=== PATIENT | female | born 1940 | race Native Hawaiian/Other Pacific Islander ===

== ENCOUNTER 2016-06-28 08:10 | Outpatient (CLI) | payer OTHER ==
[~2016-06-28 08:10] MED LIST: ALLEGRA ALRG180 M1 PO; AMOX500C85 PO; BUDEPRION150 MG PO; FLUT0.05 NAS; FURO20TA67 PO; LISI20TA11 PO; MELOXICAM7.5 MG PO; POTA20TA4 PO; SPIRONOLACT25 MG PO; TRAM50TA PO
[2016-06-28 08:42] LABS: PLATELET COUNT 210 K/uL (152-353)
[2016-06-28 09:54] LABS: POTASSIUM 4.3 mmol/L (3.6-5.2)
== END 2016-06-28 19:03 | disposition home or self-care (01) ==
LOC: LABW 08:10
PROVIDERS: Internal Medicine Nephrology
DX: I12.9 Hypertensive chronic kidney disease with stage 1 through stage 4 chronic kidney disease, or unspecified chronic kidney disease (principal); N18.4 Chronic kidney disease, stage 4 (severe); E78.4 Other hyperlipidemia
CPT/HCPCS: 36415; 80053; 80061; 81000; 82306; 82570; 83970; 84100; 84155; 84439; 84443; 85027

== ENCOUNTER 2016-07-26 12:13 | Outpatient (CLI) | payer OTHER | END 2016-07-26 13:30 | disposition home or self-care (01) | LOC: RAD 12:13 | DX: M79.672 Pain in left foot (principal) ==

== ENCOUNTER 2017-01-03 09:06 | Outpatient (CLI) | payer OTHER ==
[2017-01-03 09:30] LABS: PLATELET COUNT 188 K/uL (152-353)
[2017-01-03 10:41] LABS: POTASSIUM 4.9 mmol/L (3.6-5.2)
== END 2017-01-03 19:28 | disposition home or self-care (01) ==
LOC: LABW 09:06
PROVIDERS: Internal Medicine Nephrology
DX: I12.9 Hypertensive chronic kidney disease with stage 1 through stage 4 chronic kidney disease, or unspecified chronic kidney disease (principal); N18.4 Chronic kidney disease, stage 4 (severe); E78.4 Other hyperlipidemia
CPT/HCPCS: 36415; 80053; 81000; 82306; 82570; 83970; 84100; 84155; 85027

== ENCOUNTER 2017-05-11 08:34 | Outpatient (CLI) | payer OTHER | END 2017-05-11 21:57 | disposition home or self-care (01) | LOC: MAMMO 08:34 | DX: Z12.31 Encounter for screening mammogram for malignant neoplasm of breast (principal) ==

== ENCOUNTER 2017-06-01 09:13 | Outpatient (CLI) | payer OTHER ==
[2017-06-01 09:59] LABS: PLATELET COUNT 218 K/uL (152-353)
[2017-06-01 10:37] LABS: POTASSIUM 4.3 mmol/L (3.6-5.2)
== END 2017-06-01 18:00 | disposition home or self-care (01) ==
LOC: LABW 09:13
PROVIDERS: Internal Medicine Nephrology
DX: I12.9 Hypertensive chronic kidney disease with stage 1 through stage 4 chronic kidney disease, or unspecified chronic kidney disease (principal); N18.4 Chronic kidney disease, stage 4 (severe); E87.5 Hyperkalemia
CPT/HCPCS: 36415; 80053; 81000; 82306; 82570; 83970; 84100; 84155; 85027

== ENCOUNTER 2017-08-03 11:24 | Outpatient (CLI) | payer OTHER | END 2017-08-03 22:38 | disposition home or self-care (01) | LOC: RAD 11:24 | DX: M25.561 Pain in right knee (principal) ==

== ENCOUNTER 2017-10-08 12:30 | Outpatient (CLI) | payer OTHER | END 2017-10-08 20:33 | disposition home or self-care (01) | LOC: RAD 12:30 | DX: M25.561 Pain in right knee (principal) ==

== ENCOUNTER 2017-10-12 09:56 | Outpatient (CLI) | payer OTHER | END 2017-10-12 19:45 | disposition home or self-care (01) | LOC: US 09:56 | DX: R60.0 Localized edema (principal) ==

== ENCOUNTER 2017-12-04 07:53 | Outpatient (CLI) | payer OTHER ==
[2017-12-04 08:23] LABS: PLATELET COUNT 197 K/uL (152-353)
[2017-12-04 08:51] LABS: POTASSIUM 4.3 mmol/L (3.6-5.2)
== END 2017-12-04 22:23 | disposition home or self-care (01) ==
LOC: LABW 07:53
PROVIDERS: Internal Medicine Nephrology
DX: N18.4 Chronic kidney disease, stage 4 (severe) (principal); E87.5 Hyperkalemia; I10 Essential (primary) hypertension
CPT/HCPCS: 36415; 80053; 81000; 82306; 82570; 83970; 84100; 84155; 85027

== ENCOUNTER 2018-05-20 10:31 | Outpatient (CLI) | payer OTHER ==
[2018-05-20 11:09] LABS: POTASSIUM 4.6 mmol/L (3.6-5.2)
== END 2018-05-20 21:52 | disposition home or self-care (01) ==
LOC: LABW 10:31
PROVIDERS: Internal Medicine
DX: I48.91 Unspecified atrial fibrillation (principal); I10 Essential (primary) hypertension; Z79.899 Other long term (current) drug therapy; M54.41 Lumbago with sciatica, right side
CPT/HCPCS: 36415; 80053; 80061; 84439; 84443

== ENCOUNTER 2018-06-24 09:01 | Outpatient (CLI) | payer OTHER | END 2018-06-24 22:56 | disposition home or self-care (01) | LOC: MRI 09:01 | DX: M54.2 Cervicalgia (principal); M54.16 Radiculopathy, lumbar region ==

== ENCOUNTER 2018-07-02 16:33 | Outpatient (CLI) | payer OTHER | END 2018-07-02 22:51 | disposition home or self-care (01) | LOC: LAB 16:33 | DX: L03.116 Cellulitis of left lower limb (principal) | CPT/HCPCS: 87070; 87077; 87185; 87186; 87205 ==

== ENCOUNTER 2018-07-18 21:17 | Emergency (ER) | payer OTHER ==
[~2018-07-18] VITALS: Ht 154.9 cm; Wt 96.6 kg
[2018-07-19 00:12] VITALS: BP 155/68; TEMP 97.7
== END 2018-07-19 00:20 | disposition home or self-care (01) ==
LOC: ED 21:17
DX: K52.89 Other specified noninfective gastroenteritis and colitis (principal); R11.2 Nausea with vomiting, unspecified; R19.7 Diarrhea, unspecified
CPT/HCPCS: 96360; 96374; 96375; 99284; J2405

== ENCOUNTER 2018-08-06 08:41 | Outpatient (CLI) | payer OTHER ==
[2018-08-06 09:07] LABS: PLATELET COUNT 221 K/uL (152-353)
[2018-08-06 09:14] LABS: POTASSIUM 5.3 mmol/L (3.6-5.2)
== END 2018-08-06 19:18 | disposition home or self-care (01) ==
LOC: LABW 08:41
PROVIDERS: Internal Medicine Nephrology
DX: I12.9 Hypertensive chronic kidney disease with stage 1 through stage 4 chronic kidney disease, or unspecified chronic kidney disease (principal); N18.3 Chronic kidney disease, stage 3 (moderate); E87.5 Hyperkalemia; E55.9 Vitamin D deficiency, unspecified; M15.8 Other polyosteoarthritis
CPT/HCPCS: 36415; 80053; 81000; 82570; 82652; 83970; 84100; 84155; 85027

== ENCOUNTER 2018-11-07 08:52 | Outpatient (CLI) | payer OTHER ==
[2018-11-07 10:28] LABS: PLATELET COUNT 211 K/uL (152-353)
[2018-11-07 10:43] LABS: POTASSIUM 4.4 mmol/L (3.6-5.2)
== END 2018-11-07 20:26 | disposition home or self-care (01) ==
LOC: MAMMO 08:52
PROVIDERS: Internal Medicine
DX: Z00.00 Encounter for general adult medical examination without abnormal findings (principal); Z12.31 Encounter for screening mammogram for malignant neoplasm of breast; Z13.820 Encounter for screening for osteoporosis; N95.8 Other specified menopausal and perimenopausal disorders; I12.9 Hypertensive chronic kidney disease with stage 1 through stage 4 chronic kidney disease, or unspecified chronic kidney disease; N18.3 Chronic kidney disease, stage 3 (moderate)
CPT/HCPCS: 36415; 80053; 80061; 81000; 84439; 84443; 85027

== ENCOUNTER 2019-03-03 09:02 | Outpatient (CLI) | payer OTHER ==
[2019-03-03 09:41] LABS: POTASSIUM 4.3 mmol/L (3.6-5.2)
[2019-03-03 09:48] LABS: PLATELET COUNT 220 K/uL (152-353)
== END 2019-03-03 22:54 | disposition home or self-care (01) ==
LOC: LABW 09:02
PROVIDERS: Internal Medicine Nephrology
DX: I12.9 Hypertensive chronic kidney disease with stage 1 through stage 4 chronic kidney disease, or unspecified chronic kidney disease (principal); N18.3 Chronic kidney disease, stage 3 (moderate); E78.49 Other hyperlipidemia; M19.90 Unspecified osteoarthritis, unspecified site; E55.9 Vitamin D deficiency, unspecified
CPT/HCPCS: 36415; 80053; 80061; 82570; 84100; 84155; 85027

== ENCOUNTER 2019-05-14 08:14 | Outpatient (CLI) | payer OTHER ==
[2019-05-14 08:50] LABS: PLATELET COUNT 185 K/uL (152-353)
[2019-05-14 09:20] LABS: POTASSIUM 4.2 mmol/L (3.6-5.2)
== END 2019-05-14 19:19 | disposition home or self-care (01) ==
LOC: LABW 08:14
PROVIDERS: Internal Medicine
DX: I10 Essential (primary) hypertension (principal); I48.91 Unspecified atrial fibrillation
CPT/HCPCS: 36415; 80053; 80061; 81000; 84439; 84443; 85027

== ENCOUNTER 2019-07-30 08:10 | Outpatient (CLI) | payer OTHER ==
[2019-07-30 09:03] LABS: POTASSIUM 4.6 mmol/L (3.6-5.2)
[2019-07-30 10:02] LABS: PLATELET COUNT 161 K/uL (152-353)
== END 2019-07-30 22:21 | disposition home or self-care (01) ==
LOC: LABW 08:10
PROVIDERS: Internal Medicine Nephrology
DX: E55.9 Vitamin D deficiency, unspecified (principal); E87.5 Hyperkalemia; M19.90 Unspecified osteoarthritis, unspecified site; N18.3 Chronic kidney disease, stage 3 (moderate); E46 Unspecified protein-calorie malnutrition; I12.9 Hypertensive chronic kidney disease with stage 1 through stage 4 chronic kidney disease, or unspecified chronic kidney disease
CPT/HCPCS: 36415; 80053; 82306; 82570; 83970; 84100; 84155; 85027

== ENCOUNTER 2019-11-28 08:55 | Outpatient (CLI) | payer OTHER ==
[2019-11-28 09:42] LABS: POTASSIUM 4.7 mmol/L (3.6-5.2)
[2019-11-28 10:12] LABS: PLATELET COUNT 208 K/uL (152-353)
== END 2019-11-28 23:52 | disposition home or self-care (01) ==
LOC: LABW 08:55
PROVIDERS: Internal Medicine
DX: I10 Essential (primary) hypertension (principal)
CPT/HCPCS: 36415; 80053; 80061; 81000; 84439; 84443; 85027

== ENCOUNTER 2020-02-27 08:44 | Outpatient (CLI) | payer OTHER ==
[2020-02-27 09:38] LABS: PLATELET COUNT 187 K/uL (152-353)
[2020-02-27 11:17] LABS: POTASSIUM 4.4 mmol/L (3.6-5.2)
== END 2020-02-27 20:01 | disposition home or self-care (01) ==
LOC: LABW 08:44
PROVIDERS: ATTEND Internal Medicine
DX: E03.8 Other specified hypothyroidism (principal); N18.30 Chronic kidney disease, stage 3 unspecified; I12.9 Hypertensive chronic kidney disease with stage 1 through stage 4 chronic kidney disease, or unspecified chronic kidney disease
CPT/HCPCS: 36415; 80053; 81000; 84439; 84443; 85027

== ENCOUNTER 2020-03-09 10:28 | Outpatient (CLI) | payer OTHER | END 2020-03-09 19:12 | disposition home or self-care (01) | LOC: MAMMO 10:28 | PROVIDERS: ATTEND Internal Medicine | DX: Z12.31 Encounter for screening mammogram for malignant neoplasm of breast (principal) ==

== ENCOUNTER 2020-06-07 08:46 | Outpatient (CLI) | payer OTHER ==
[2020-06-07 09:22] LABS: PLATELET COUNT 217 K/uL (152-353)
[2020-06-07 10:19] LABS: POTASSIUM 4.6 mmol/L (3.6-5.2)
== END 2020-06-07 20:43 | disposition home or self-care (01) ==
LOC: LABW 08:46
PROVIDERS: ATTEND Internal Medicine Nephrology
DX: E55.9 Vitamin D deficiency, unspecified (principal); E87.5 Hyperkalemia; M19.90 Unspecified osteoarthritis, unspecified site; N18.30 Chronic kidney disease, stage 3 unspecified; E88.09 Other disorders of plasma-protein metabolism, not elsewhere classified; I12.9 Hypertensive chronic kidney disease with stage 1 through stage 4 chronic kidney disease, or unspecified chronic kidney disease
CPT/HCPCS: 36415; 80053; 82570; 83970; 84100; 84155; 85027

== ENCOUNTER 2020-07-12 11:44 | Outpatient (CLI) | payer OTHER ==
[2020-07-12 12:07] LABS: PLATELET COUNT 215 K/uL (152-353)
[2020-07-12 12:28] LABS: POTASSIUM 4.5 mmol/L (3.6-5.2)
== END 2020-07-12 19:33 | disposition home or self-care (01) ==
LOC: LABW 11:44
PROVIDERS: ATTEND Internal Medicine
DX: Z00.00 Encounter for general adult medical examination without abnormal findings (principal); I10 Essential (primary) hypertension; Z79.899 Other long term (current) drug therapy; Z13.820 Encounter for screening for osteoporosis; E55.9 Vitamin D deficiency, unspecified
CPT/HCPCS: 36415; 80053; 80061; 81000; 82306; 84439; 84443; 85027

== ENCOUNTER 2020-12-21 09:01 | Outpatient (CLI) | payer OTHER ==
[2020-12-21 09:29] LABS: PLATELET COUNT 234 K/uL (152-353)
[2020-12-21 10:01] LABS: POTASSIUM 4.6 mmol/L (3.6-5.2)
== END 2020-12-21 19:25 | disposition home or self-care (01) ==
LOC: LABW 09:01
PROVIDERS: ATTEND Internal Medicine Nephrology
DX: E55.9 Vitamin D deficiency, unspecified (principal); E87.5 Hyperkalemia; I10 Essential (primary) hypertension; M19.90 Unspecified osteoarthritis, unspecified site; E88.09 Other disorders of plasma-protein metabolism, not elsewhere classified; N18.32 Chronic kidney disease, stage 3b; Z79.899 Other long term (current) drug therapy; R06.09 Other forms of dyspnea
CPT/HCPCS: 36415; 80053; 80061; 81000; 82306; 82570; 83880; 84155; 85027

== ENCOUNTER 2021-01-03 08:51 | Outpatient (CLI) | payer OTHER | END 2021-01-03 20:03 | disposition home or self-care (01) | LOC: RESP 08:51 | PROVIDERS: ATTEND Internal Medicine Cardiovascular Disease | DX: I10 Essential (primary) hypertension (principal); R09.89 Other specified symptoms and signs involving the circulatory and respiratory systems ==

== ENCOUNTER 2021-03-24 09:24 | Outpatient (CLI) | payer OTHER | END 2021-03-24 19:13 | disposition home or self-care (01) | LOC: MAMMO 09:24 | PROVIDERS: ATTEND Internal Medicine | DX: Z12.31 Encounter for screening mammogram for malignant neoplasm of breast (principal); Z13.820 Encounter for screening for osteoporosis; Z78.0 Asymptomatic menopausal state ==

== ENCOUNTER 2021-07-07 09:53 | Outpatient (CLI) | payer OTHER ==
[2021-07-07 10:46] LABS: PLATELET COUNT 224 K/uL (152-353)
[2021-07-07 10:51] LABS: POTASSIUM 4.2 mmol/L (3.6-5.2)
== END 2021-07-07 19:10 | disposition home or self-care (01) ==
LOC: LABW 09:53
PROVIDERS: ATTEND Internal Medicine
DX: I10 Essential (primary) hypertension (principal); I48.91 Unspecified atrial fibrillation; E55.9 Vitamin D deficiency, unspecified
CPT/HCPCS: 36415; 80053; 80061; 81000; 82306; 84439; 84443; 85027

== ENCOUNTER 2021-12-22 07:58 | Outpatient (CLI) | payer OTHER ==
[2021-12-22 08:19] LABS: PLATELET COUNT 239 K/uL (152-353)
[2021-12-22 09:23] LABS: POTASSIUM 4.4 mmol/L (3.6-5.2)
== END 2021-12-22 19:03 | disposition home or self-care (01) ==
LOC: LABW 07:58
PROVIDERS: ATTEND Internal Medicine Nephrology
DX: E55.9 Vitamin D deficiency, unspecified (principal); E87.5 Hyperkalemia; M19.90 Unspecified osteoarthritis, unspecified site; N18.32 Chronic kidney disease, stage 3b; E88.09 Other disorders of plasma-protein metabolism, not elsewhere classified; I12.9 Hypertensive chronic kidney disease with stage 1 through stage 4 chronic kidney disease, or unspecified chronic kidney disease
CPT/HCPCS: 36415; 80053; 81000; 82306; 82570; 83970; 84100; 84156; 84439; 84443; 85027

== ENCOUNTER 2022-05-09 08:36 | Outpatient (CLI) | payer OTHER ==
[2022-05-09 09:01] LABS: PLATELET COUNT 234 K/uL (152-353)
[2022-05-09 09:24] LABS: POTASSIUM 4.9 mmol/L (3.6-5.2)
== END 2022-05-09 21:52 | disposition home or self-care (01) ==
LOC: LABW 08:36
PROVIDERS: ATTEND Internal Medicine Nephrology
DX: E55.9 Vitamin D deficiency, unspecified (principal); E87.5 Hyperkalemia; M19.90 Unspecified osteoarthritis, unspecified site; E88.09 Other disorders of plasma-protein metabolism, not elsewhere classified; I12.9 Hypertensive chronic kidney disease with stage 1 through stage 4 chronic kidney disease, or unspecified chronic kidney disease; N18.4 Chronic kidney disease, stage 4 (severe); R60.0 Localized edema
CPT/HCPCS: 36415; 80069; 81002; 82306; 82570; 82728; 83540; 83550; 83970; 84156; 85027

== ENCOUNTER 2022-05-16 12:56 | Outpatient (CLI) | payer OTHER | END 2022-05-16 18:58 | disposition home or self-care (01) | LOC: LAB 12:56 | PROVIDERS: ATTEND Internal Medicine | DX: I10 Essential (primary) hypertension (principal); I48.91 Unspecified atrial fibrillation | CPT/HCPCS: 80061; 80076; 84439; 84443 ==

== ENCOUNTER 2022-06-05 10:24 | Outpatient (CLI) | payer OTHER | END 2022-06-05 21:31 | disposition home or self-care (01) | LOC: MAMMO 10:24 | PROVIDERS: ATTEND Internal Medicine | DX: Z12.31 Encounter for screening mammogram for malignant neoplasm of breast (principal) ==

== ENCOUNTER 2022-06-28 14:55 | Outpatient (CLI) | payer OTHER | END 2022-06-28 19:05 | disposition home or self-care (01) | LOC: MAMMO 14:55 | PROVIDERS: ATTEND Internal Medicine | DX: R92.8 Other abnormal and inconclusive findings on diagnostic imaging of breast (principal) ==

== ENCOUNTER 2022-10-17 08:09 | Outpatient (CLI) | payer OTHER ==
[2022-10-17 08:40] LABS: PLATELET COUNT 204 K/uL (152-353)
[2022-10-17 09:24] LABS: POTASSIUM 4.7 mmol/L (3.6-5.2)
== END 2022-10-17 20:08 | disposition home or self-care (01) ==
LOC: LABW 08:09
PROVIDERS: ATTEND Internal Medicine Nephrology
DX: E55.9 Vitamin D deficiency, unspecified (principal); E87.5 Hyperkalemia; M19.90 Unspecified osteoarthritis, unspecified site; E88.09 Other disorders of plasma-protein metabolism, not elsewhere classified; D50.8 Other iron deficiency anemias; I48.91 Unspecified atrial fibrillation; N18.4 Chronic kidney disease, stage 4 (severe); R60.0 Localized edema; I12.9 Hypertensive chronic kidney disease with stage 1 through stage 4 chronic kidney disease, or unspecified chronic kidney disease
CPT/HCPCS: 36415; 80069; 81002; 82306; 82728; 83540; 83550; 83970; 84156; 85027

== ENCOUNTER 2022-11-27 12:58 | Outpatient (CLI) | payer OTHER | END 2022-11-27 19:09 | disposition home or self-care (01) | LOC: LAB 12:58 | PROVIDERS: ATTEND Internal Medicine | DX: I10 Essential (primary) hypertension (principal); I48.91 Unspecified atrial fibrillation | CPT/HCPCS: 80061; 84439; 84443 ==